=== PATIENT | male | born 1970 | race Caucasian/White ===

== ENCOUNTER 2019-03-19 08:26 | Inpatient (IN) | payer MEDICAID ==
[~2019-03-19] VITALS: Ht 167.6 cm; Wt 90.9 kg
[2019-03-19 08:33] VITALS: Ht 167.6 cm; Wt 90.9 kg
[2019-03-19 10:28] LABS: microscopic required? NO
[2019-03-19 10:35] LABS: BASOPHIL % 0.3 % (0-2); PLATELET COUNT 233 x10^3mcL (130-400); RED CELL DISTRIBUTION WIDTH 13.4 % (11.5-14.5)
[2019-03-19 10:57] LABS: CALCIUM 9.2 mg/dL (8.5-10.1); CARBON DIOXIDE 28.4 mmol/L (21-32); CHLORIDE SERUM 104 mmol/L (98-107); CREATININE SERUM 0.9 mg/dL (0.7-1.3); GFR1 > 60 mL/min; GLUCOSE SERUM 105 mg/dL (74-106); POTASSIUM SERUM 4.1 mmol/L (3.5-5.1); SODIUM SERUM 140 mmol/L (136-145)
[2019-03-19 11:10] LABS: ALKALINE PHOSPHATASE 104 U/L (46-116); ALT/SGPT 49 U/L (16-63); AST/SGOT 22 U/L (15-37); BILIRUBIN TOTAL 0.5 mg/dL (0.20-1.00); CHOLESTEROL 143 mg/dL (<200); HDL CHOLESTEROL 41 mg/dL (40-60); LIPASE 180 IU/L (73-393); TOTAL PROTEIN, SERUM 7.5 g/dL (6.4-8.2)
[2019-03-19 11:45] LABS: urine erythrocyte NEGATIVE (NEGATIVE)
[2019-03-19 12:18] LABS: AMPHETAMINE QUAL UR NONE DETECTED (See below)
[2019-03-19 15:45] LABS: FREE T4 1.09 ng/dL (0.76-1.46); FREE THYROXINE INDEX 2.2 ug/dL (1.4-4.5); T3 TOTAL 1.13 ng/mL; T4(THYROXINE) 6.6 ug/dL (4.7-13.3)
[2019-03-19 16:15] VITALS: BP 124/72
[2019-03-19 19:27] VITALS: BP 134/71
[2019-03-20 05:18] VITALS: BP 136/76
[2019-03-20 06:22] LABS: BASOPHIL % 0.3 % (0-2); PLATELET COUNT 221 x10^3mcL (130-400); RED CELL DISTRIBUTION WIDTH 13.1 % (11.5-14.5)
[2019-03-20 06:57] LABS: CALCIUM 9.1 mg/dL (8.5-10.1); CARBON DIOXIDE 26.1 mmol/L (21-32); CHLORIDE SERUM 105 mmol/L (98-107); CREATININE SERUM 0.9 mg/dL (0.7-1.3); GFR1 > 60 mL/min; GLUCOSE SERUM 83 mg/dL (74-106); MAGNESIUM 2.2 mg/dL (1.8-2.4); PHOSPHOROUS 2.9 mg/dL (2.5-4.9); POTASSIUM SERUM 3.9 mmol/L (3.5-5.1); SODIUM SERUM 141 mmol/L (136-145)
[2019-03-20 09:24] VITALS: BP 114/69
[2019-03-20 09:28] VITALS: BP 114/69
[2019-03-20] MEDS ORDERED: TEN50 PO (10:50)
[2019-03-20 11:26] VITALS: BP 114/69
== END 2019-03-20 12:50 | disposition home or self-care (01) ==
LOC: ED 08:26 → MU 14:36 → DU 14:36 → MU 16:00
PROVIDERS: Emergency Medicine; ADMIT Family Medicine
DX: K80.20 Calculus of gallbladder without cholecystitis without obstruction (principal); R16.0 Hepatomegaly, not elsewhere classified; F41.9 Anxiety disorder, unspecified; I10 Essential (primary) hypertension; K21.9 Gastro-esophageal reflux disease without esophagitis; Z68.32 Body mass index [BMI] 32.0-32.9, adult
CPT/HCPCS: 78226; 83880; 84439; A9537; G0378; J7030